=== PATIENT | male | born 1975 | race Two or more races ===

== ENCOUNTER → 2024-07-20 | Outpatient (CLI) | payer MEDICAID, SELFPAY ==
--- NOTE | 2024-07-20 15:00 | XR_ITS ---
Examination: MRI lumbar spine without contrast Date and time of exam: July 20, 2024 at 1843 hrs. Indications: Low back pain radiating down the left leg more prominent the last 5 months Technique: Multiple MRI axial and sagittal sections lumbar spine. Sagittal T2-weighted images, TR 3500, TE 118 T1 weighted transverse sections, TR 688 T8.5, T2-weighted sagittal sections T1 weighted sagittal sections TR 621, TE 30 T2 axial sections, TR 4, 190, TE 84. Findings: Transitional S1 vertebral body No lumbar fracture Disc desiccation lower 3 lumbar levels with mild to moderate disc narrowing No spondylolisthesis L5-S1 3 mm central lumbar disc bulge extending to the left foraminal region with mild left L5 ganglionic compression L4-L5 2 mm central lumbar disc bulge L3-4 3 mm central lumbar disc bulge L2-L3 no disc protrusion L1-L2 no disc protrusion Impression: L5-S1 3 mm central lumbar disc bulge extending to the left foraminal region with mild left L5 ganglionic compression
== END | disposition home or self-care (01) ==
PROVIDERS: PCP Internal Medicine; Referring Provider Physician Assistant; Visit Provider Physician Assistant
DX: M51.379 Other intervertebral disc degeneration, lumbosacral region without mention of lumbar back pain or lower extremity pain (principal); G95.20 Unspecified cord compression
CPT/HCPCS: 72148

== ENCOUNTER → 2024-08-28 | Outpatient (CLI) | payer MEDICAID, SELFPAY ==
--- NOTE | 2024-08-28 10:51 | XR_ITS ---
Examination: Tibia-Fibula, left , 2 views Technique: Tibia-fibula AP lateral 2 views Date and time of exam: August 28, 2024 12:25 PM INDICATIONS: Patient fell 5 days ago with injury of the lower leg, lower leg pain. FINDINGS: No fracture or dislocation. No cortical bone destruction No opaque foreign body IMPRESSION: No opaque foreign body
== END | disposition home or self-care (01) ==
LOC: SDIM 10:42
PROVIDERS: PCP Physician Assistant; Referring Provider Physician Assistant; Visit Provider Physician Assistant
DX: S89.92XA Unspecified injury of left lower leg, initial encounter (principal); W19.XXXA Unspecified fall, initial encounter
CPT/HCPCS: 73590

== ENCOUNTER → 2025-03-15 | Outpatient (CLI) | payer MEDICAID, SELFPAY ==
--- NOTE | 2025-03-15 13:07 | XR_ITS ---
EXAMINATION: Left knee 3 views TECHNIQUE: AP lateral: Lateral lower lumbar spine 3 views Date and time: March 15, 2025, 1332 hours COMPARISON: March 29, 2018 INDICATIONS: Back pain post back surgery. FINDINGS: Transpedicular lumbar fusion L3-S1 with anatomic alignment No lumbar fracture No significant disc narrowing above the fusion site IMPRESSION: Transpedicular lumbar fusion L3-S1 with anatomic alignment
== END | disposition home or self-care (01) ==
PROVIDERS: PCP Physician Assistant; Referring Provider Physician Assistant; Visit Provider Physician Assistant
DX: M43.27 Fusion of spine, lumbosacral region (principal); Z98.1 Arthrodesis status
CPT/HCPCS: 72100